=== PATIENT | male | born 1945 | race Caucasian/White ===

== ENCOUNTER 2024-05-28 09:05 | Inpatient (IN) | payer OTHER, SELFPAY ==
[2024-05-28] VITALS (19 sets, daily range): BP systolic 86–180; BP diastolic 41–88; BMI 26.5
--- NOTE | 2024-05-28 05:07 | ED.GENMED ---
History of Present Illness
<ROSA Godfrey - Last Filed: 05/28/24 07:20>
General
Chief Complaint: Abdominal Pain
Source: patient and spouse
Exam Limitations: none
Time Seen by Provider: 05/28/24 05:08
Nursing documentation reviewed up to this point in time: agreed with
History of Present Illness
History of Present Illness:
Pt is an 78 y/o M with pmhx of HTN, HLD, GERD, diverticulitis, bronchitis, BPH, and diabetes who presents with complaints of upper abdominal pain since 12 AM. Pain is moderate in severity with occasional radiation to the back. He has tried pepto
bismol and simethicone without relief. His last meal was last night which consisted of soup and a ham and cheese sandwich. Denies nausea, vomiting, diarrhea, constipation, fever, chills, headache, chest pain, SOB, and changes in urination.
Past History
<ROSA Godfrey - Last Filed: 05/28/24 07:20>
Past History
ED Past Medical History: HTN, Hypercholesterolemia, NIDDM and Other (BPH)
ED Past Surgical History: Urological
Social History
Tobacco: Smoker
Alcohol: None
Personal:
Living: with family
Employment: Retired
Family History
Family History: Diabetes
Review of Systems
<ROSA Godfrey - Last Filed: 05/28/24 07:20>
Review of Systems
Allergies reviewed?: Yes
Constitutional: Reports no symptoms
EENT: Reports no symptoms
Respiratory: Reports no symptoms
Cardiac: Reports no symptoms
ABD/GI: Reports abdominal pain
: Reports no symptoms
Musculoskeletal: Reports no symptoms
Skin: Reports no symptoms
Neurological: Reports no symptoms
Endocrine: Reports no symptoms
Hematologic/Lymphatic: Reports no symptoms
Psychiatric: Reports no symptoms
Phy Exam
<ROSA Godfrey - Last Filed: 05/28/24 07:20>
General Physical Exam
General Presentation: mild distress
General age: appears stated age
General Skin: warm and dry
General Habitus: normal
General Mental: alert
General Hydration: appears well hydrated
ENT Exam
ENT Exam: EOMI and neck supple
Eye Exam
Eye Exam: PERRL, EOMI, cornea clear and conjunctiva normal
Cardiovascular Exam
Cardiovascular Exam: regular rate/rhythm and normal peripheral pulses
Pulmonary Exam
Pulmonary Exam: lungs clear, no respiratory distress, no rales, chest non tender, no crackles, no rhonchi, no stridor, no wheezing and no cough
Gastrointestinal Exam
Gastrointestinal Exam: soft, no pulsatile mass, non distended, tender (Diffuse epigastric tenderness) and other (Negative Cabrera's sign)
Auscultation of Abdomen: hyperactive
Neurological Exam
Neurological Exam: alert, oriented x3, CN II-XII intact, no motor deficits, normal reflexs, no sensory deficits and speech normal
Musculoskeletal Exam
Musculoskeletal Exam: full ROM, no edema and neuro vasc intact
Skin Exam
Skin Exam: normal color, warm/dry, no rash and no petechia
Psychiatric Exam
Psychiatric Exam: normal mood/affect
Course
<ROSA Godfrey - Last Filed: 05/28/24 07:20>
Orders/Labs/Results
Orders:
Orders
05/28/24 05:29
EKG [Electrocardiogram (*1)] Urgent
Reason for Study: Abdominal Pain
EKG- Treatment ONCE
05/28/24 05:32
0.9% Sodium Chloride 500 ml [Nss] 500 ml IV BOLUS
Ondansetron Injectable [Zofran] 4 mg IV NOW STA
Pantoprazole [Protonix IV] 40 mg IV NOW STA
US Abdomen Complete/Upper Urgent
Comment:
Reason For Exam: epigastric abd pain
05/28/24 05:35
Ketorolac [Toradol] 15 mg IV NOW STA
05/28/24 05:58
Complete Blood Count/With Diff Urgent
Comprehensive Metabolic Panel Urgent
Comment: REDRAW
Lipase Urgent
Comment: REDRAW
05/28/24 07:50
0.9% Sodium Chloride 500 ml [Nss] 500 ml IV BOLUS
CefTRIAXone [Rocephin] 1,000 mg IV NOW STA
MetroNIDAZOLE 500 MG/100 ML [Flagyl 500 mg] 100 ml IV NOW
05/28/24 07:53
SURGICAL CONSULT Urgent
Consulting Provider: Raymundo Garcia
Was physician already notified: Yes
05/28/24 08:51
Admit/Transfer Patient As Directed
Co-Sign Provider:
Level of Care: Inpatient admission
Assign to:: Medical/Surgical
Physician / Group: Hospitalist
Diagnosis: Abdominal pain
Reason for Hospitalization: .
Expected length of stay greater than two midnights?: Yes
ELOS- Estimated Length of Stay in days: 3
I certify the patient meets the requirements for IP care: Yes
PRN Pain Medication Management As Directed
May give lesser potent ordered pain med per pt: Yes
preference::
Protocol:: Medication orders for pain may be administered in a
manner that supports deferring to patient preference
when the pt is:
- Requesting an ordered lesser potent pain medication.
Least to most potent pain medications are defined
as: acetaminophen < NSAID < tramadol < opioids
(morphine, oxycodone, hydromorphone).
- Requesting a lesser dose of the same medication IF
ORDERED.
- Requesting a less intrusive route of administration
if both routes are prescribed by the provider (PO <
IV).
05/28/24 08:53
Code Status As Directed
Resuscitation Status: Full Code
Abnormal Lab Results
05/28/24
05:58
WBC 12.0 H 10^3/uL
(4.8-10.8)
RBC 4.64 L 10^6/uL
(4.70-6.10)
MPV 10.7 H fL
(7.4-10.4)
Abs Immat Gran (auto) 0.8 H 10^3/uL
(0-0.05)
Absolute Neuts (auto) 9.1 H 10^3/uL
(1.4-6.5)
Absolute Lymphs (auto) 0.9 L 10^3/uL
(1.2-3.4)
Absolute Monos (auto) 1.0 H 10^3/uL
(0.1-0.6)
Immature Gran % 6.5 H %
(0-0.5)
Neutrophils % 75.6 H %
(42.2-75.2)
Lymphocytes % 7.6 L %
(20.5-51.1)
BUN 44 H mg/dl
(9-20)
Creatinine 2.0 H mg/dL
(0.7-1.3)
Glucose 194 H mg/dl
(70-99)
05/28/24 05:58
05/28/24 05:58
Vital Signs
Initial and Last Documented VS:
Initial Vital Signs
Temp Pulse Resp BP Pulse Ox
36.5 C 71 16 174/80 98
05/28/24 04:39 05/28/24 04:39 05/28/24 04:39 05/28/24 04:39 05/28/24 04:39
Last Documented Vital Signs
Temp Pulse Resp BP Pulse Ox
36.5 C 81 16 140/83 97
05/28/24 04:39 05/28/24 07:22 05/28/24 07:22 05/28/24 08:00 05/28/24 08:00
<Harrison Arizmendi MD - Last Filed: 05/28/24 09:08>
Orders/Labs/Results
Orders:
Orders
05/28/24 05:29
EKG [Electrocardiogram (*1)] Urgent
Reason for Study: Abdominal Pain
EKG- Treatment ONCE
05/28/24 05:32
0.9% Sodium Chloride 500 ml [Nss] 500 ml IV BOLUS
Ondansetron Injectable [Zofran] 4 mg IV NOW STA
Pantoprazole [Protonix IV] 40 mg IV NOW STA
US Abdomen Complete/Upper Urgent
Comment:
Reason For Exam: epigastric abd pain
05/28/24 05:35
Ketorolac [Toradol] 15 mg IV NOW STA
05/28/24 05:58
Complete Blood Count/With Diff Urgent
Comprehensive Metabolic Panel Urgent
Comment: REDRAW
Lipase Urgent
Comment: REDRAW
05/28/24 07:50
0.9% Sodium Chloride 500 ml [Nss] 500 ml IV BOLUS
CefTRIAXone [Rocephin] 1,000 mg IV NOW STA
MetroNIDAZOLE 500 MG/100 ML [Flagyl 500 mg] 100 ml IV NOW
05/28/24 07:53
SURGICAL CONSULT Urgent
Consulting Provider: Raymundo Garcia
Was physician already notified: Yes
05/28/24 08:51
Admit/Transfer Patient As Directed
Co-Sign Provider:
Level of Care: Inpatient admission
Assign to:: Medical/Surgical
Physician / Group: Hospitalist
Diagnosis: Abdominal pain
Reason for Hospitalization: .
Expected length of stay greater than two midnights?: Yes
ELOS- Estimated Length of Stay in days: 3
I certify the patient meets the requirements for IP care: Yes
PRN Pain Medication Management As Directed
May give lesser potent ordered pain med per pt: Yes
preference::
Protocol:: Medication orders for pain may be administered in a
manner that supports deferring to patient preference
when the pt is:
- Requesting an ordered lesser potent pain medication.
Least to most potent pain medications are defined
as: acetaminophen < NSAID < tramadol < opioids
(morphine, oxycodone, hydromorphone).
- Requesting a lesser dose of the same medication IF
ORDERED.
- Requesting a less intrusive route of administration
if both routes are prescribed by the provider (PO <
IV).
05/28/24 08:53
Code Status As Directed
Resuscitation Status: Full Code
Abnormal Lab Results
05/28/24
05:58
WBC 12.0 H 10^3/uL
(4.8-10.8)
RBC 4.64 L 10^6/uL
(4.70-6.10)
MPV 10.7 H fL
(7.4-10.4)
Abs Immat Gran (auto) 0.8 H 10^3/uL
(0-0.05)
Absolute Neuts (auto) 9.1 H 10^3/uL
(1.4-6.5)
Absolute Lymphs (auto) 0.9 L 10^3/uL
(1.2-3.4)
Absolute Monos (auto) 1.0 H 10^3/uL
(0.1-0.6)
Immature Gran % 6.5 H %
(0-0.5)
Neutrophils % 75.6 H %
(42.2-75.2)
Lymphocytes % 7.6 L %
(20.5-51.1)
BUN 44 H mg/dl
(9-20)
Creatinine 2.0 H mg/dL
(0.7-1.3)
Glucose 194 H mg/dl
(70-99)
05/28/24 05:58
05/28/24 05:58
Vital Signs
Initial and Last Documented VS:
Initial Vital Signs
Temp Pulse Resp BP Pulse Ox
36.5 C 71 16 174/80 98
05/28/24 04:39 05/28/24 04:39 05/28/24 04:39 05/28/24 04:39 05/28/24 04:39
Last Documented Vital Signs
Temp Pulse Resp BP Pulse Ox
36.5 C 81 16 140/83 97
05/28/24 04:39 05/28/24 07:22 05/28/24 07:22 05/28/24 08:00 05/28/24 08:00
<ROSA Godfrey - Last Filed: 05/28/24 07:20>
MDM/Problems Addressed
Differential Diagnosis Includes:
Acute pancreatitis
Acute Cholecystitis
Gastritis
<ROSA Godfrey - Last Filed: 05/28/24 07:20>
*Critical Care Note
Total Time (30-74mins, 75-104mins- exclusive of procedures): Not Applicable
<ROSA Godfrey - Last Filed: 05/28/24 07:20>
Update Note
Update Note:
05/28/2400: Pt stated that his symptoms have improved overall. He is resting comfortably.
<Harrison Arizmendi MD - Last Filed: 05/28/24 09:08>
Update Note
Update Note:
05/28/2400: Pt stated that his symptoms have improved overall. He is resting comfortably.
UPDATE (Harrison Arizmendi MD)
I saw and examined patient after signout and reviewed all labs and imaging.
Focused HPI: 78-year-old male with history as documented presents to the ER with his for evaluation of abdominal pain. Started around midnight and has been constant although improved with pain meds here. Denies vomiting, diarrhea,
constipation, urinary symptoms. Denies fever. He does admit that he has had occasional upper abdominal pains in the past but never this severe�he had attributed to GERD.
Physical exam: Awake alert not in distress. Hypertensive triage normalized by my assessment. Rest of vitals normal. Abdomen soft nondistended tender to palpation right upper quadrant with no peritoneal signs.
Medical Decision Makin-year-old male presents with upper abdominal pain started last night and has been constant. He had labs including a CBC which showed a leukocytosis to 12. CMP showed creatinine of 2 which is increased from prior baseline
of 0.9�unclear chronicity of this renal insufficiency; LFTs were normal, lipase normal. He is pending an abdominal ultrasound. He received Toradol and fluids here and his pain is well-controlled.
Ultrasound reviewed�patient has gallstone at the neck of the gallbladder and some gallbladder wall thickening�this in addition to his leukocytosis and continued tenderness suggests cholecystitis. Will treat with antibiotics. Case discussed with
general surgery for consult. Case discussed with hospitalist for admission.
ED Attending Note
<ROSA Godfrey - Last Filed: 05/28/24 07:20>
-
Portions of this chart may have been created with voice recognition software.� Occasional wrong word or��sound alike� substitutions may have occurred due to the inherent limitations of voice recognition software.
Discharge Plan
Departure
Patient Disposition: Admit
Date of Disposition: 05/28/24
Time of Disposition: 07:58
Admit to doctor: Mark
Presentation/result/management discussed w/ accepting MD/DO: Hospitalist
Discharge Problem:
Acute cholecystitis
Interventions
Interventions:
*Risk Screen - Suicide Last Done: 05/28/24 04:47
*General Assessment Last Done: 05/28/24 04:39
*Neglect/Abuse Screening Last Done: 05/28/24 04:47
*ED COVID-19 Vaccine History Last Done: 05/28/24 04:46
JD-Yjcowy-Pvpuhikrvw Assessment Last Done: 05/28/24 04:50
[2024-05-28] MEDS: PROTONIX IV 40 MG IV (05:59)
[2024-05-28] MEDS: NSS 500 IV ×2 (05:59→08:06)
[2024-05-28] MEDS: ZOFRAN 4 MG IV (05:59)
[2024-05-28] MEDS: TORADOL 15 MG IV (05:59)
[2024-05-28 06:20] LABS: ALT (SGPT) 22 U/L (0-50); AST (SGOT) 27 U/L (17-59); Alkaline Phosphatase 71 U/L (38-126); Blood Urea Nitrogen 44 mg/dl (9-20); Carbon Dioxide 24 mmol/L (22-30); Chloride 102 mmol/L (98-107); Estimated Creatinine Clearance 28 ml/min; Glucose 194 mg/dl (70-99); Lipase 124 U/L (23-300); Potassium 4.2 mmol/L (3.5-5.1); Sodium 140 mmol/L (135-145); Total Bilirubin 0.4 mg/dl (0.2-1.3); Total Protein 7.6 g/dl (6.3-8.2); eGFR 33.12
[2024-05-28 06:30] LABS: Hematocrit 41.3 % (39.0-52.0); Hemoglobin 14.1 g/dL (13.0-18.0); Mean Corp Hgb Conc. 34.1 g/dL (33.0-37.0); Mean Corpuscular Hgb 30.4 pg (27.0-31.0); Mean Platelet Volume 10.7 fL (7.4-10.4); Platelet Count 166 10^3/uL (130-400); Red Blood Cell Count 4.64 10^6/uL (4.70-6.10); Red Cell Dist. Width 14.1 % (11.5-14.5)
[2024-05-28 07:36] LABS: % Basophils 1.4 % (0-2); % Eosinophils 0.5 % (0-6); % Immature Granulocytes 6.5 % (0-0.5); % Lymphocytes 7.6 % (20.5-51.1); % Monocytes 8.4 % (1.7-9.3); % Neutrophils 75.6 % (42.2-75.2); Absolute Basophils 0.2 10^3/uL (0-0.2); Absolute Eosinophils 0.1 10^3/uL (0-0.7); Absolute Immature Granulocytes 0.8 10^3/uL (0-0.05); Absolute Lymphocytes 0.9 10^3/uL (1.2-3.4); Absolute Neutrophils 9.1 10^3/uL (1.4-6.5); Nucleated Red Blood Cells % 0 % (-)
[2024-05-28] MEDS: ROCEPHIN 1000 MG IV (08:06)
[2024-05-28] MEDS: FLAGYL 500 MG 100 IV (08:07)
--- NOTE | 2024-05-28 08:50 | HPS.HSE ---
Family Physician
-
Family Physician: Scott Curiel MD
Chief Complaint
-
Abdominal pain for few hours duration
History of Present Illness
78 years old male presented with abdominal pain, upper abdominal. He thought it was related to gas pain. He denied nausea or vomiting. Denied fever or chills. He presented to the emergency room with abdominal pain. Ultrasound was consistent
with cholelithiasis/cholecystitis. Patient was evaluated by surgery and plan for laparoscopic cholecystectomy
Medical History
Past Medical History
Past Medical History: Reports Other (COPD, hypertension, hyperlipidemia, diabetes, tobacco use)
Past Surgical History: Reports Other (No recent major surgery)
Social History
Tobacco: Smoker
Drug: None
Personal:
Living: With Family
Employment: Retired
Family History
Family History: Other (He denied history of heart disease)
Allergies / Home Medications
Allergies reflects when Allergies were last updated in [facility].
Home Medications with original date entered in [facility]
Allergy/Medication List:
Allergies
Allergy/AdvReac Type Severity Reaction Status Date / Time
No Known Allergies Allergy Verified 08/19/18 11:20
Home Medications
amlodipine 5 mg tablet 5 mg PO DAILY 08/09/18
glyburide 5 mg tablet 5 mg PO BID 08/09/18
omeprazole 20 mg capsule,delayed release 20 mg PO DAILY 08/09/18
polyethylene glycol 3350 17 gram oral powder packet (ClearLax) 17 gm PO DAILY 08/09/18
sitagliptin phosphate 100 mg tablet (Januvia) 100 mg PO DAILY 08/09/18
ferrous sulfate 325 mg (65 mg iron) tablet (iron) 162.5 mg PO DAILY 08/19/18
Lactobac no.2-Bifidobac no.1-S. thermo 112.5 billion cell capsule (Visbiome) 1 cap PO DAILY 05/28/24
aspirin 81 mg tablet,delayed release 81 mg PO DAILY 05/28/24
atorvastatin 20 mg tablet (Lipitor) 20 mg PO QPM 05/28/24
bismuth subsalicylate 525 mg/15 mL oral suspension 525 mg PO BIDPRN PRN gerd 05/28/24
cholecalciferol (vitamin D3) 25 mcg (1,000 unit) tablet (Vitamin D3) 25 mcg PO DAILY 05/28/24
dapagliflozin propanediol 10 mg tablet (Farxiga) 10 mg PO DAILY 05/28/24
fenofibrate nanocrystallized 145 mg tablet (Tricor) 145 mg PO Q48H 05/28/24
hydralazine 100 mg tablet 100 mg PO TID 05/28/24
levothyroxine 100 mcg tablet (Synthroid) 100 mcg PO DAILY@0600 05/28/24
lutein 10 mg tablet 10 mg PO DAILY 05/28/24
simethicone 80 mg chewable tablet 160 mg PO DAILYPRN PRN gas pains 05/28/24
therapeutic multivitamin 1 tab PO DAILY 05/28/24
valsartan 320 mg tablet 320 mg PO DAILY 05/28/24
Review of Systems
-
History Source: Patient
A 12 point ROS was completed and negative except as noted: Yes
Constitutional: Denies Fever or Chills
EENT: Denies Sore Throat
Respiratory: Denies Cough or Trouble Breathing
Cardiac: Denies Chest Pain
Abdomen/GI: Reports Abdominal Pain; Denies Nausea
: Denies Dysuria
Musculoskeletal: Denies Joint Swelling
Neurological: Denies Weakness
Endocrine: Denies Temp Intolerance
Hematologic/Lymphatic: Denies Bruising
Psych: Denies Panic Disorder
Physical Exam
Vital Signs
Vital Signs
Temp Pulse Resp BP Pulse Ox
97.7 F 81 16 140/83 97
05/28/24 04:39 05/28/24 07:22 05/28/24 07:22 05/28/24 08:00 05/28/24 08:00
Physical Exam
General: Well Nourished, No Apparent Distress and Comfortable
HEENT: Moist mucous membranes and Atraumatic
Respiratory: Clear
Cardiac: S1/S2 and Regular Rhythm
GI: Soft, Non Distended and Tender (Upper abdominal)
Genito-urinary: No costovertebral tender
Musculoskeletal: No Clubbing, No Cyanosis and No Edema
Skin: Warm; No Jaundice
Neuro: AO x 3 and Nonfocal/grossly intact
Psych: Calm and Intact Judgment/Insight
Laboratory Results
-
05/28/24 05:58
05/28/24 05:58
Laboratory Results
Total Bilirubin 0.4 mg/dl (0.2-1.3) 05/28/24 05:58
AST 27 U/L (17-59) 05/28/24 05:58
ALT 22 U/L (0-50) 05/28/24 05:58
Alkaline Phosphatase 71 U/L (38-126) 05/28/24 05:58
Lipase 124 U/L (23-300) 05/28/24 05:58
Impression/Plan
-
78 years old male presented with abdominal pain
#Acute calculus cholecystitis
Admit the patient to the hospital
Positive leukocytosis. No fever. No nausea or vomiting
IV pain medication as needed
Start the patient on IV fluid, n.p.o., bowel rest
Empiric IV antibiotic
Discussed with surgery, plan for laparoscopic cholecystectomy
Normal liver enzymes, no hyperbilirubinemia
Appreciate surgery input
# Preop evaluation
Patient denied history of angina or heart disease. History of COPD but does not use oxygen or inhaler. Continued tobacco use average 1 pack/day
EKG no acute ischemic changes. No hypoxia
History of hypertension and hyperlipidemia
No contraindication for anesthesia or surgery
# Presumed acute kidney injury. We do not know baseline. Creatinine on admission 2.0.
Ultrasound showed no hydronephrosis, positive bilateral renal cyst
# Fatty liver seen on abdominal ultrasound
# Tobacco use/COPD
Currently patient has no wheezes. Reports a dry cough and sometimes brownish sputum.
Order chest x-ray
No hypoxia detected
# Primary hypertension
Continue amlodipine. Hold valsartan due to renal insufficiency. Monitor blood pressure
# History of diabetes.
Continue oral hypoglycemic agents.. Insulin sliding scale for now.
Avoid hypoglycemia
Total time spent to see the patient, examine the patient on the floor, review data and lab results, discuss treatment plan with patient and his , surgery, ER doctor, nursing staff around 75 minutes
--- NOTE | 2024-05-28 10:46 | CON.GS ---
Consultation
-
Performing Provider: Jose
Reason for Consultation: ACC
Medical History
-
Chief Complaint: Abdominal pain
History of Present Illness:
Patient is an 78-year-old male who is in his usual baseline state of health until approximately midnight this past evening when he began developing generalized abdominal discomfort and bloating that he thought was related to gas pains. He tried
Pepto and Gas-X without relief. His pain increased in severity and became more notable in the epigastrium and right upper quadrant with some radiation towards the back and left side. Anorexia but no nausea or vomiting. No recent change in his
bowel habits. No associated symptoms. No similar episodes of pain like this in the past and he is unaware of the presence of gallstones.
Past Medical History
Past Medical History: COPD, HTN, Hypercholesterolemia, NIDDM and Other (Tobacco use)
Past Surgical History: Urological (Prostate biopsy)
Social History
Tobacco: Smoker
Personal:
Living: With Family
Employment: Retired
Family History
Family History: Reviewed & Not Pertinent
Allergies / Home Medications
Allergy/AdvReac Type Severity Reaction Status Date / Time
No Known Allergies Allergy Verified 08/19/18 11:20
�Medication �Instructions �Recorded �Confirmed �Type
amlodipine 5 mg tablet 5 mg PO DAILY 08/09/18 05/28/24 History
glyburide 5 mg tablet 5 mg PO BID 08/09/18 05/28/24 History
omeprazole 20 mg capsule,delayed 20 mg PO DAILY 08/09/18 05/28/24 History
release
polyethylene glycol 3350 17 gram 17 gm PO DAILY 08/09/18 05/28/24 History
oral powder packet (ClearLax)
sitagliptin phosphate 100 mg 100 mg PO DAILY 08/09/18 05/28/24 History
tablet (Januvia)
ferrous sulfate 325 mg (65 mg 162.5 mg PO DAILY 08/19/18 05/28/24 History
iron) tablet (iron)
Lactobac no.2-Bifidobac no.1-S. 1 cap PO DAILY 05/28/24 05/28/24 History
thermo 112.5 billion cell capsule
(Visbiome)
aspirin 81 mg tablet,delayed 81 mg PO DAILY 05/28/24 05/28/24 History
release
atorvastatin 20 mg tablet (Lipitor) 20 mg PO QPM 05/28/24 05/28/24 History
bismuth subsalicylate 525 mg/15 mL 525 mg PO BIDPRN PRN gerd 05/28/24 05/28/24 History
oral suspension
cholecalciferol (vitamin D3) 25 25 mcg PO DAILY 05/28/24 05/28/24 History
mcg (1,000 unit) tablet (Vitamin
D3)
dapagliflozin propanediol 10 mg 10 mg PO DAILY 05/28/24 05/28/24 History
tablet (Farxiga)
fenofibrate nanocrystallized 145 145 mg PO Q48H 05/28/24 05/28/24 History
mg tablet (Tricor)
hydralazine 100 mg tablet 100 mg PO TID 05/28/24 05/28/24 History
levothyroxine 100 mcg tablet 100 mcg PO DAILY@0600 05/28/24 05/28/24 History
(Synthroid)
lutein 10 mg tablet 10 mg PO DAILY 05/28/24 05/28/24 History
simethicone 80 mg chewable tablet 160 mg PO DAILYPRN PRN gas pains 05/28/24 05/28/24 History
therapeutic multivitamin 1 tab PO DAILY 05/28/24 05/28/24 History
valsartan 320 mg tablet 320 mg PO DAILY 05/28/24 05/28/24 History
Review of Systems
-
History Source: Patient
All other systems: Negative unless noted
A 10 point review of systems was completed, and was negative except as per HPI.
Physical Exam
Vital Signs
Temp Pulse Resp BP Pulse Ox
97.7 F 59 16 158/70 95
05/28/24 04:39 05/28/24 10:03 05/28/24 10:03 05/28/24 10:00 05/28/24 10:00
05/27/24 05/28/24 05/29/24
06:59 06:59 06:59
Actual Weight 76.8 kg
Body Mass Index (BMI) 26.5
Lab Results
05/28/24 05:58
05/28/24 05:58
WBC 12.0 10^3/uL (4.8-10.8) H 05/28/24 05:58
Hgb 14.1 g/dL (13.0-18.0) 05/28/24 05:58
Hct 41.3 % (39.0-52.0) 05/28/24 05:58
Plt Count 166 10^3/uL (130-400) 05/28/24 05:58
Abs Immat Gran (auto) 0.8 10^3/uL (0-0.05) H 05/28/24 05:58
Neutrophils % 75.6 % (42.2-75.2) H 05/28/24 05:58
Physical Exam
General: Well Developed, Well Nourished, No Apparent Distress and Other (Uncomfortable appearing)
HEENT: Normocephalic and Anicteric
Respiratory: Non Labored Respirations
Cardiac: Regular Rhythm
GI: Soft, Non Distended and Tender (Tenderness palpation localizing to the right upper quadrant but without rebound rigidity or guarding)
Skin: Warm
Neuro: AO x 3
Psych: Calm
Data Reviewed
-
Ultrasound: Image Personally Visualized and interpreted, Discussed with Physician, Discussed with Patient and Discussed with Family
Labs: Labs Reviewed by me, Discussed with Physician, Discussed with Patient and Discussed with Family
Assessment / Plan
-
Assessment: 78-year-old male with acute calculus cholecystitis and secondary intractable abdominal pain as well as leukocytosis. LFTs normal.
Ultrasound imaging confirmed gallstones, no biliary ductal dilation, distended gallbladder with some enhancement/edema of the wall. Images personally reviewed as well as radiologist report.
Discussed with Mr. Davis and his at bedside indications for cholecystectomy which they are in agreement with.
Laparoscopic cholecystectomy with possible cholangiogram was reviewed in detail including operative technique utilizing diagrams and alternative management options. The potential benefits and risks of the procedure were reviewed in detail, including
but not limited to infectious or wound healing complications, bleeding, bile leak, injury to biliary tree, iatrogenic injury to surrounding viscera and post cholecystectomy syndrome. Reviewed the typical postoperative recovery.
Any of the patient's concerns or questions were fully addressed and informed consent was obtained.
Plan:
Patient has been added onto the OR schedule for today
N.p.o.
IV fluids
Antibiotics initiated in emergency department
Await OR availability/timing
[2024-05-28] MEDS: MORPHINE SULFATE 4 MG IV (11:07)
--- NOTE | 2024-05-28 13:22 | W.SUR.PREOP ---
Pre-Operative Surgical Note
-
I have examined this patient prior to the performance of the scheduled procedure.
The patient's condition is unchanged from the time of the current History and
Physical and the patient is able to undergo the scheduled procedure.
--- NOTE | 2024-05-28 14:36 | W.IMMPOSTOP ---
Addendum entered and electronically signed by Raymundo Garcia MD 05/28/24 14:57:
#[id number]
Original Note:
Surgical Immed Post Op Note
-
Primary Surgeon: Jose
Assisting Surgeon: Carmen MONTALVO
Pre-op Diagnosis: Acute calculus cholecystitis
Post-op Diagnosis: Acute calculus cholecystitis
Procedure Performed: Laparoscopic cholecystectomy
Anesthesia Type: GETA +0.25% Marcaine
Specimen / Cultures: GB
Estimated Blood Loss: 12mL
Complications: None immediate
Operative Findings: Chronic adhesions to gallbladder. Acutely distended gallbladder with hydrops. Cyst needle decompression. Large stone impacted in gallbladder neck. Cystic duct and artery as well as posterior branch isolated and controlled
with clips. Gallbladder removed off of liver bed intact and extracted at epigastric port site.
Plan: Routine postoperative care, advance diet as tolerated, continue antibiotics overnight but no indications for discharge on additional antibiotic therapy.
Updated patient's family postoperatively in the waiting area.
[2024-05-28 14:45] LABS: Glucose - Point of Care 183 mg/dl (70-99)
[2024-05-28] MEDS: NOVOLOG vial 1 UNITS SC (15:01)
--- NOTE | 2024-05-28 15:46 | PTCARENOTE ---
Patient admitted from [facility] post laparoscopic cholecystectomy.The patient denies any pain.Vital signs are stable.All incisions are clean and without drainage.The patient is in his bed with the call hankins in reach.His will be coming soon.
[2024-05-28 16:45] LABS: Glucose - Point of Care 175 mg/dl (70-99)
[2024-05-28] MEDS: NORVASC 5 MG PO (16:57)
[2024-05-28] MEDS: NSS 1000 IV ×2 (16:58→21:10)
[2024-05-28] MEDS: MICRONASE 5 MG PO (17:12)
[2024-05-28] MEDS: NOVOLOG FLEXPEN-MODERATE RESISTANCE 1 UNITS SC (17:30)
[2024-05-28] MEDS: APRESOLINE 100 MG PO (21:00)
[2024-05-28 21:17] LABS: Glucose - Point of Care 184 mg/dl (70-99)
[2024-05-29 00:39] VITALS: BP 117/67
[2024-05-29 03:00] VITALS: BP 116/62
[2024-05-29] MEDS: NSS 1000 IV (03:51)
[2024-05-29] MEDS: SYNTHROID 100 MCG PO (05:08)
[2024-05-29 06:27] LABS: Hematocrit 36.4 % (39.0-52.0); Hemoglobin 12.2 g/dL (13.0-18.0); Mean Corp Hgb Conc. 33.5 g/dL (33.0-37.0); Mean Corpuscular Hgb 30.5 pg (27.0-31.0); Mean Platelet Volume 11.6 fL (7.4-10.4); Platelet Count 168 10^3/uL (130-400); Red Cell Dist. Width 14.4 % (11.5-14.5); White Blood Cell Count 13.2 10^3/uL (4.8-10.8)
[2024-05-29 06:45] LABS: ALT (SGPT) 32 U/L (0-50); AST (SGOT) 43 U/L (17-59); Albumin 3.6 g/dl (3.5-5.0); Alkaline Phosphatase 41 U/L (38-126); Blood Urea Nitrogen 34 mg/dl (9-20); Calcium 8.5 mg/dl (8.4-10.2); Carbon Dioxide 24 mmol/L (22-30); Chloride 108 mmol/L (98-107); Estimated Creatinine Clearance 29 ml/min; Glucose 114 mg/dl (70-99); Potassium 4.7 mmol/L (3.5-5.1); Sodium 142 mmol/L (135-145); Total Bilirubin 0.3 mg/dl (0.2-1.3); Total Protein 5.9 g/dl (6.3-8.2); eGFR 35.22
[2024-05-29 07:25] VITALS: BP 128/69
[2024-05-29 07:26] LABS: Glucose - Point of Care 104 mg/dl (70-99)
--- NOTE | 2024-05-29 07:53 | W.PN.GS2 ---
Addendum entered and electronically signed by Ghanshyam Morales MD 05/29/24 08:46:
I saw and examined the patient independently.
The resident's note was reviewed and I agree with the note, assessment and plan except where noted below.
Comment: 78-year-old male postoperative day 1 from laparoscopic cholecystectomy. Doing well, expected postoperative course.
Dispo planning as below.
Original Note:
Today's Communication / Plan
-
D/c home on low fat diet with instructions for f/u with Dr. Garcia in 2-3 weeks.
Assessment / Plan
-
78 year old M POD1 Lap Cholecystectomy
#Acute Calculus Cholecystitis s/p Lap Adrienne
- Tolerating diet, can likely be discharged today from surgical perspective
- No need for out patient antibiotics
- D/c home on low fat diet with instructions for f/u with Dr. Garcia in 2-3 weeks.
Subjective Data
-
Feeling well this morning. Passing gas. Has not had a BM yet. No N/V.
Objective Data
-
Intake and Output
05/28/24 05/29/24 05/30/24
06:59 06:59 06:59
Intake Total 2280 / 2280
Output Total 2250 / 2250
Balance 30 / 30
Intake:
Oral fluids 480 / 480
IV fluids (Total) 1800 / 1800
Output:
Urine, Voided 2250 / 2250
Vital Signs
Temp Pulse Resp BP Pulse Ox
98.2 F 78 12 116/62 96
05/29/24 03:00 05/29/24 03:00 05/29/24 03:00 05/29/24 03:00 05/29/24 03:00
Lab Results
05/29/24 04:55
05/29/24 04:55
Calcium 8.5 mg/dl (8.4-10.2) D 05/29/24 04:55
Total Bilirubin 0.3 mg/dl (0.2-1.3) 05/29/24 04:55
AST 43 U/L (17-59) 05/29/24 04:55
ALT 32 U/L (0-50) 05/29/24 04:55
Alkaline Phosphatase 41 U/L (38-126) 05/29/24 04:55
Total Protein 5.9 g/dl (6.3-8.2) L D 05/29/24 04:55
Albumin 3.6 g/dl (3.5-5.0) 05/29/24 04:55
Physical Exam
-
General: Well appearing. NAD
Abdominal: Mildly distended, nontender to palpation. Surgical incisions healing well.
[2024-05-29 08:50] LABS: Glycohemoglobin (HgbA1c) 6.2 % (4.0-5.6)
[2024-05-29] MEDS: NOVOLOG FLEXPEN-MODERATE RESISTANCE SC (09:01)
[2024-05-29] MEDS: NORVASC 5 MG PO (09:02)
[2024-05-29] MEDS: FARXIGA 10 MG PO (09:02)
[2024-05-29] MEDS: APRESOLINE 100 MG PO (09:02)
[2024-05-29] MEDS: VISBIOME 1 CAP PO (09:02)
[2024-05-29] MEDS: ASPIR LOW (ENTERIC COATED) 81 MG PO (09:03)
[2024-05-29] MEDS: MICRONASE 5 MG PO (09:03)
[2024-05-29] MEDS: NSS (PRESERVATIVE FREE) 10 ML IV (09:03)
[2024-05-29] MEDS: PROTONIX IV 40 MG IV (09:04)
[2024-05-29] MEDS: ROCEPHIN 1000 MG IV (09:04)
[2024-05-29] MEDS: STERILE WATER FOR INJECTION 10 ML IV (09:06)
--- NOTE | 2024-05-29 09:38 | W.PN.HOSP.TC ---
Today's Communication/Plan
-
Discharge planning
Will update primary care physician, a form was placed, await callback from the office
Assessment / Plan
Assessment / Plan
Physical Exam
General: Well Nourished, No Apparent Distress and Comfortable
HEENT: Moist mucous membranes and Atraumatic
Respiratory: Clear
Cardiac: S1/S2 and Regular Rhythm
GI: Soft, Non Distended and Tender (Upper abdominal)
Genito-urinary: No costovertebral tender
Musculoskeletal: No Clubbing, No Cyanosis and No Edema
Skin: Warm; No Jaundice
Neuro: AO x 3 and Nonfocal/grossly intact
Psych: Calm and Intact Judgment/Insight
78 years old male presented with abdominal pain
#Acute calculus cholecystitis
Status post laparoscopic cholecystectomy, no complications
No abdominal pain or nausea
Tolerating diet
Active leukocytosis with no fevers
Normal liver enzymes, no hyperbilirubinemia
Appreciate surgery input
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
pt did not know exactly his kidney function but reported that he was told he had kidney insufficiency and was scheduled to follow-up with supervisor line department
No flank pain or hematuria
Ultrasound showed no hydronephrosis, positive bilateral renal cyst
Patient did not need a slip to repeat blood work as he he has order with his a primary care doctor
# Fatty liver seen on abdominal ultrasound
# Tobacco use/COPD
Currently patient has no wheezes. Reports a dry cough and sometimes brownish sputum.
Order chest x-ray
No hypoxia detected
# Primary hypertension
Resume home medications
# History of diabetes.
Continue oral hypoglycemic agents.. Insulin sliding scale was given
Avoid hypoglycemia
Total discharge time spent to see the patient, examine the patient on the floor, review data and lab results, discuss discharge plan with patient and his , nursing staff around 65 minutes
Anticipated Discharge: Today
Subjective/Interval History
-
Date of Service: May 29, 2024
Doing well
Tolerating diet
No abd pain
Wants to go home
NO chest pain
NO sob
Objective Data
-
Labs:
Laboratory Results
05/29/24
04:55
WBC 13.2 H
Hgb 12.2 L
Hct 36.4 L
Plt Count 168
Sodium 142
Potassium 4.7
Chloride 108 H
Carbon Dioxide 24
BUN 34 H
Creatinine 1.9 H
Glucose 114 H
Calcium 8.5 D
Total Bilirubin 0.3
AST 43
ALT 32
Alkaline Phosphatase 41
Vital Signs:
Vital Signs
Temp Pulse Resp BP Pulse Ox
97.9 F 62 14 128/69 97
05/29/24 07:25 05/29/24 07:25 05/29/24 07:25 05/29/24 07:25 05/29/24 07:25
I&O
05/28/24 05/29/24 05/30/24
06:59 06:59 06:59
Intake Total 2280 / 2280
Output Total 2250 / 2250
Balance 30 / 30
--- NOTE | 2024-05-29 09:58 | CM ---
Alert awake oriented patient who lives with his Devon who lives in a 2 story home with 2 step to enter and 7 steps to bed and bathroom. He is independent in driving and in all activities of daily living.He was offered VN he declined need.He said
his will drive him home.Has CPAP with [facility].
No VN hx / No SNF history
Pharmacy [facility]
PCP DR Curiel
PLAN Home Declined VN
--- NOTE | 2024-05-29 13:03 | W.DCSUMMARY ---
Discharge Summary
Discharge Data
Date of Admission: 05/28/24
Date of Discharge: 05/29/24
-
Pending Results: No
Hospital Course
78 years old male presented with abdominal pain. Patient was found to have acute calculus cholecystitis. He was evaluated by surgery and underwent laparoscopic cholecystectomy by by Dr. Garcia without complications on May 28, 2024. Patient
tolerated procedure well. He was started on low-fat diet postoperatively and he tolerated diet well. He did not have hypoxia or hypotension. Heart rate remained stable. He was noted to have kidney insufficiency. His baseline creatinine in
outpatient setting around 2.1-2.4. Patient follows with nephrology in the outpatient setting. Patient remained hemodynamically stable. He did not need oxygen supplementation. He reported continued tobacco use, he was counseled to quit. Patient
verbalized understanding to the instructions. Patient had left renal cyst around 6 cm which was known to his outpatient doctors. Patient was discharged home in a stable condition. Condition of the patient and his lab work, US findings were
discussed with his a primary care doctor Dr Curiel over the phone.
Discharge Plan
-
Patient Disposition: Home (Routine Discharge)
Discharge Diagnosis/Procedures: Acute cholecystitis. Laparoscopic cholecystectomy
Condition: Good
Diet: Low Fat
Activity: No strenuous activity
Driving Restrictions: As prior to admission
Bathing Restrictions: OK to Shower
Blood Work: CBC & CMP in 5 days
Activity Restrictions/Additional Instructions:
Instructions following Laparoscopic Cholecystectomy
Please call [phone] if you have any questions or concerns after your surgery.
Wound Care:
Your incisions are covered with skin glue which will come off on its own in 5-10 days.
It is ok to shower the day after your surgery. Do not scrub the incisions, let soap and water wash over them and pat dry.
� Bruising around your incisions is normal.
� Using ice packs will help minimize this swelling.
� No swimming or soaking incisions for 1 week.
� Your stitches will dissolve and do not need to be removed.
Urinary retention:
If you are unable to urinate 6-8 hours after your surgery, please call [phone] to discuss further management.
Activity:
No heavy lifting more than 15 pounds for the next 3 weeks, then you may gradually lift heavier objects as tolerated by discomfort. Otherwise activity as tolerated by your comfort level.
Pain Management:
Use Tylenol, ibuprofen and ice packs to treat your pain.
� You may take 650 milligrams of Tylenol (Max 3 grams per day) every 6 hours, and 600 mg of ibuprofen also every 6 hours. (you can alternate them every 3 hours)
� You may use an ice pack to your incision as needed.
� If you still have pain not controlled by these measures, take your prescription pain medication as prescribed.
Medications:
You may resume your home medications.
Bowel Medications:
Prescription pain medication can make you constipated. If you take this medication, also take colace 100 mg twice daily (this is over the counter). If this is not sufficient, you may take Miralax (polyethylene glycol) to help move your bowels.
Diet:
After your procedure, there are no dietary restrictions. However, you may notice some loose stools with fatty meals for up to 4 weeks after surgery. If this is the case, please adjust to a low fat diet as needed.
Driving restrictions:
No driving if you are taking prescription pain medication or if you think your normal reaction time and attentiveness has been slowed by your surgery.
Things to Look out for:
Worsening Abdominal pain, fever, jaundice, redness or drainage from incision
Call Doctor for:
Please call if you notice worsening redness or drainage from incision(s) lasting longer than 5 days after your surgery, any foul-smelling drainage from the incision, pain not controlled by pain medications, persistent nausea and vomiting, or for any
fevers greater than 101.3 F. The number for questions/concerns is [phone]
Follow-up:
A follow-up appointment will be scheduled with your surgeon in 3-4 weeks. Please call prior to your appointment if you have any questions or concerns. [phone]
Referrals:
Scott Curiel MD [Family Provider] -
Raymundo Garcia MD [Active] - in two to three weeks
Prescriptions:
Continued
polyethylene glycol 3350 [ClearLax] 17 GM powder in packet
17 gm PO DAILY
glyburide 5 MG tablet
5 mg PO BID
amlodipine 5 MG tablet
5 mg PO DAILY
omeprazole 20 MG capsule,delayed release(DR/EC)
20 mg PO DAILY
Januvia 100 MG tablet
100 mg PO DAILY
ferrous sulfate [iron] 325 MG tablet
162.5 mg PO DAILY
dapagliflozin propanediol [Farxiga] 10 mg Tablet
10 mg PO DAILY
atorvastatin [Lipitor] 20 mg Tablet
20 mg PO QPM
therapeutic multivitamin Tablet
1 tab PO DAILY
aspirin 81 mg Tablet,Delayed Release (Dr/Ec)
81 mg PO DAILY
levothyroxine [Synthroid] 100 mcg Tablet
100 mcg PO DAILY@0600
hydralazine 100 mg Tablet
100 mg PO TID
valsartan 320 mg Tablet
320 mg PO DAILY
simethicone 80 mg Tablet,Chewable
160 mg PO DAILYPRN PRN (Reason: gas pains)
bismuth subsalicylate 525 mg/15 mL Suspension
525 mg PO BIDPRN PRN (Reason: gerd)
fenofibrate nanocrystallized [Tricor] 145 mg Tablet
145 mg PO Q48H
cholecalciferol (vitamin D3) [Vitamin D3] 25 mcg (1,000 unit) Tablet
25 mcg PO DAILY
Visbiome 112.5 billion cell Capsule
1 cap PO DAILY
lutein 10 mg Tablet
10 mg PO DAILY
Discharge Orders:
Discharge Patient (As Directed); Ordered 05/29/24
Ordered By: uQynh Mcdowell
Discharge Date and Time
Discharge Date/Time: 05/29/24 11:46
Print Language: [id number]
== END 2024-05-29 11:46 | disposition home or self-care (01) | DRG 419 ==
LOC: 2 SOUTH 09:05
PROVIDERS: ADMITTING PHYSICIAN Internal Medicine; CONSULT PHYSICIAN Surgery; EMERGENCY PHYSICIAN Emergency Medicine; FAMILY PHYSICIAN Family Medicine
PROC: 0FT44ZZ Resection of Gallbladder, Percutaneous Endoscopic Approach (ICD-10-PCS; 2024-05-28)
DX: K80.01 Calculus of gallbladder with acute cholecystitis with obstruction (principal); I12.9 Hypertensive chronic kidney disease with stage 1 through stage 4 chronic kidney disease, or unspecified chronic kidney disease; E11.22 Type 2 diabetes mellitus with diabetic chronic kidney disease; N18.32 Chronic kidney disease, stage 3b; J44.9 Chronic obstructive pulmonary disease, unspecified; E78.00 Pure hypercholesterolemia, unspecified; F17.210 Nicotine dependence, cigarettes, uncomplicated; K21.9 Gastro-esophageal reflux disease without esophagitis; N40.0 Benign prostatic hyperplasia without lower urinary tract symptoms; K76.0 Fatty (change of) liver, not elsewhere classified; K82.8 Other specified diseases of gallbladder; Z79.890 Hormone replacement therapy; Z79.84 Long term (current) use of oral hypoglycemic drugs; Z79.899 Other long term (current) drug therapy; Z79.82 Long term (current) use of aspirin
CPT/HCPCS: 88304; 76700; 80053; 82962; 83036; 83690; 85025; 85027; 93005; 96361; 96374; 96375; 99285; 99406